=== PATIENT | male | born 1980 | race Caucasian/White ===

== ENCOUNTER 2016-07-12 16:48 | Emergency (ER) | payer OTHER ==
[2016-07-12 17:22] VITALS: BP 132/61; PULSE 80; RESP 18; TEMP 97.9
[2016-07-12] MEDS ORDERED: DIPH,PERTUS(ACELL)TETVAC-LF 0.5 ML VIAL IM ONE (17:41)
--- NOTE | 2016-07-12 17:44 | ED ---
Skin/Abscess/FB HPI - General Chief complaint: Skin/Abscess/Foreign Body Stated complaint: Finger Laceration Time Seen by Provider: 07/12/16 17:25 Source: patient, RN notes reviewed Mode of arrival: ambulatory Limitations: no limitations - History of Present Illness Initial comments: 36-year-old male presents emergency 5 chief complaint of an injury to the right hand from a table saw. Patient states she just brushed the side of his finger. Patient states increased bleeding through thought that he should be seen. Patient states he does not recall his last tetanus. Patient denies any other injury from the incident. Patient states he has full mobility and sensation of the fingers.Patient denies any recent fever, chills, shortness of breath, chest pain, back pain, abdominal pain, nausea vomiting, numbness or tingling, dysuria or hematuria, constipation or diarrhea, headaches or visual changes, or any other current symptoms. - Related Data Home Medications Medication Instructions Recorded Confirmed Atenolol 25 mg PO DAILY 08/29/15 07/12/16 Lisinopril [Prinivil] 5 mg PO DAILY 08/29/15 07/12/16 Previous Rx's Medication Instructions Recorded Ibuprofen [Motrin] 600 mg PO Q6HR PRN #30 tab 10/20/15 Allergies Allergy/AdvReac Type Severity Reaction Status Date / Time No Known Allergies Allergy Verified 07/12/16 17:23 Review of Systems ROS Statement: Those systems with pertinent positive or pertinent negative responses have been documented in the HPI. ROS Other: All systems not noted in ROS Statement are negative. Past Medical History Past Medical History: Hypertension Additional Past Medical History / Comment(s): "leaky heart valve" History of Any Multi-Drug Resistant Organisms: None Reported Past Surgical History: Coronary Bypass/CABG Additional Past Surgical History / Comment(s): aortic aneurysm repair Past Psychological History: No Psychological Hx Reported Smoking Status: Current every day smoker Past Alcohol Use History: Rare Past Drug Use History: Marijuana General Exam - General Exam Comments Initial Comments: General: The patient is awake and alert, in no distress, and does not appear acutely ill. Neck: The neck is supple, there is no tenderness. Cardiovascular: There is a regular rate and rhythm. No murmur, rub or gallop is appreciated. Respiratory: Lungs are clear to auscultation, respirations are non-labored, breath sounds are equal. No wheezes, stridor, rales, or rhonchi. Musculoskeletal: Sensation intact with 2+ pulses. In right upper extremity Full range of motion of the right wrist and right hand. Patient does appear to have an abrasion to the right middle finger as well as to the ring finger. Some bleeding noted. Less than 2 capillary refill. Neurological: CN II-XII intact, There are no obvious motor or sensory deficits. Coordination appears grossly intact. Speech is normal. Skin: Skin is warm and dry and no rashes or lesions are noted. Psychiatric: Normal mood and affect. Limitations: no limitations Course Vital Signs 07/12/16 17:21 Temperature 97.9 F Pulse Rate 80 Respiratory 18 Rate Blood Pressure 132/61 O2 Sat by Pulse 97 Oximetry Medical Decision Making - Medical Decision Making 36-year-old male presents emergency department chief complaint of right finger abrasion. At this time we did update the patient's tetanus. Does appear to be abrasion. We discussed Follow-Up. We Discussed Return Parameters. We Discussed All the Patient's Family's Questions. He Stated They Understood. Patient Will Be Discharged Home. Disposition Clinical Impression: Finger abrasion Disposition: HOME SELF-CARE Condition: Stable Instructions: Abrasion (ED) Additional Instructions: Please use medication as discussed. Please follow up with family doctor if symptoms have not improved over the next two days. Please return to the emergency room if your symptoms increase or worsen or for any other concerns. Referrals: Jordan Garcia MD [Primary Care Provider] - 1-2 days Time of Disposition: 17:44
== END 2016-07-12 18:01 | disposition home or self-care (01) ==
LOC: EC 16:48
DX: S60.412A Abrasion of right middle finger, initial encounter (principal); W31.89XA Contact with other specified machinery, initial encounter; I10 Essential (primary) hypertension; Z95.1 Presence of aortocoronary bypass graft; F17.200 Nicotine dependence, unspecified, uncomplicated; Z79.899 Other long term (current) drug therapy
CPT/HCPCS: 90471; 90715; 99282

== ENCOUNTER 2017-01-20 13:53 | Emergency (ER) | payer OTHER ==
[2017-01-20 13:58] VITALS: RESP 16
[2017-01-20] MEDS ORDERED: ONDANSETRON 4 MG/2 ML VIAL IVP STA (14:10)
[2017-01-20] MEDS ORDERED: SODIUM CHLORIDE 0.9% 1,000 ML IV STA (14:10)
[2017-01-20] MEDS ORDERED: HYDROmorphone 1 MG/ML 1 ML SYRINGE IVP STA (14:10)
--- NOTE | 2017-01-20 14:19 | ED ---
Abdominal Pain HPI - General Chief Complaint: Abdominal Pain Stated Complaint: severe abdominal pain Time Seen by Provider: 01/20/17 14:00 Source: patient, RN notes reviewed Mode of arrival: wheelchair Limitations: no limitations - History of Present Illness Initial Comments: This a 36-year-old male presents emergency Department with chief complaint of right lower quadrant abdominal pain. Patient states that he had some symptoms on Sunday resolve but returned worse this morning. Patient states it's nonradiating right lower quadrant abdominal pain. He does have a history kidney stones and states this feels different. He denies any dysuria, hematuria , diarrhea or constipation. She's had nausea and vomiting at home and off states she's had subjective fever and chills. Patient states she had no prior abdominal surgeries denies any history of bowel infections. Patient states she' s never had a colonoscopy. Patient has NO KNOWN DRUG ALLERGIES. - Related Data Home Medications Medication Instructions Recorded Confirmed Atenolol 25 mg PO DAILY 08/29/15 01/20/17 Lisinopril [Prinivil] 5 mg PO DAILY 08/29/15 01/20/17 Previous Rx's Medication Instructions Recorded Hydrocodone/Acetaminophen [Beebe 1 tab PO Q6HR PRN #20 tab 01/20/17 5-325] Ondansetron Odt [Zofran Odt] 4 mg PO Q8HR PRN #10 tab 01/20/17 Tamsulosin [Flomax] 0.4 mg PO DAILY #7 cap 01/20/17 Allergies Allergy/AdvReac Type Severity Reaction Status Date / Time No Known Allergies Allergy Verified 01/20/17 14:18 Review of Systems ROS Statement: Those systems with pertinent positive or pertinent negative responses have been documented in the HPI. ROS Other: All systems not noted in ROS Statement are negative. Past Medical History Past Medical History: Hypertension Additional Past Medical History / Comment(s): "leaky heart valve" History of Any Multi-Drug Resistant Organisms: None Reported Past Surgical History: Coronary Bypass/CABG Additional Past Surgical History / Comment(s): aortic aneurysm repair Past Psychological History: No Psychological Hx Reported Smoking Status: Former smoker Past Alcohol Use History: Rare Past Drug Use History: Marijuana General Exam Limitations: no limitations General appearance: alert, in no apparent distress Respiratory exam: Present: normal lung sounds bilaterally. Absent: respiratory distress, wheezes, rales, rhonchi, stridor Cardiovascular Exam: Present: normal rhythm, tachycardia, normal heart sounds. Absent: systolic murmur, diastolic murmur, rubs, gallop, clicks GI/Abdominal exam: Present: soft, tenderness (Moderate right lower quadrant tenderness), normal bowel sounds, other (Positive psoas sign). Absent: distended, guarding, rebound, rigid Back exam: Absent: CVA tenderness (R), CVA tenderness (L) Skin exam: Present: warm, dry, intact, normal color. Absent: rash Course Vital Signs 01/20/17 13:56 Temperature 97.8 F Pulse Rate 111 H Respiratory 16 Rate Blood Pressure 144/75 O2 Sat by Pulse 100 Oximetry Medical Decision Making - Medical Decision Making 36-year-old male presented for right flank pain. Patient has a 5 mm obstructing stone with no change since time. Patient is afebrile. Patient did have mild left acidosis was related to his dehydration nausea vomiting. Patient is hydrated and patient states he feels much improved at this time. Patient will follow-up with on-call urology Dr. Rust patient be discharged with Kiki Schroeder Zofran. - Lab Data Result diagrams: 01/20/17 14:21 01/20/17 14:21 Lab Results 01/20/17 01/20/17 01/20/17 Range/Units 14:21 14:21 14:21 WBC 8.1 (3.8-10.6) k/uL RBC 5.31 (4.30-5.90) m/uL Hgb 16.2 (13.0-17.5) gm/dL Hct 47.9 (39.0-53.0) % MCV 90.2 (80.0-100.0) fL MCH 30.6 (25.0-35.0) pg MCHC 33.9 (31.0-37.0) g/dL RDW 13.8 (11.5-15.5) % Plt Count 192 (150-450) k/uL Neutrophils % 80 % Lymphocytes % 14 % Monocytes % 4 % Eosinophils % 1 % Basophils % 0 % Neutrophils # 6.4 (1.3-7.7) k/uL Lymphocytes # 1.2 (1.0-4.8) k/uL Monocytes # 0.3 (0-1.0) k/uL Eosinophils # 0.1 (0-0.7) k/uL Basophils # 0.0 (0-0.2) k/uL PT (9.0-12.0) sec INR (<1.2) APTT (22.0-30.0) sec Sodium 140 (137-145) mmol/L Potassium 4.0 (3.5-5.1) mmol/L Chloride 108 H (98-107) mmol/L Carbon Dioxide 18 L (22-30) mmol/L Anion Gap 14 mmol/L BUN 18 (9-20) mg/dL Creatinine 0.80 (0.66-1.25) mg/dL Est GFR (MDRD) Af Amer >60 (>60 ml/min/1.73 sqM) Est GFR (MDRD) Non-Af >60 (>60 ml/min/1.73 sqM) Glucose 121 H (74-99) mg/dL Plasma Lactic Acid Bronson 2.8 H* (0.7-2.0) mmol/L Calcium 10.1 (8.4-10.2) mg/dL Total Bilirubin 1.0 (0.2-1.3) mg/dL AST 23 (17-59) U/L ALT 25 (21-72) U/L Alkaline Phosphatase 100 (38-126) U/L Total Protein 7.5 (6.3-8.2) g/dL Albumin 4.7 (3.5-5.0) g/dL Amylase 65 (30-110) U/L Lipase 113 (23-300) U/L Urine Color Urine Appearance (Clear) Urine pH (5.0-8.0) Ur Specific [place] (1.001-1.035) Urine Protein (Negative) Urine Glucose (UA) (Negative) Urine Ketones (Negative) Urine Blood (Negative) Urine Nitrite (Negative) Urine Bilirubin (Negative) Urine Urobilinogen (<2.0) mg/dL Ur Leukocyte Esterase (Negative) Urine RBC (0-5) /hpf Ur Squamous Epith Cells (0-4) /hpf Urine Mucus (None) /hpf 01/20/17 01/20/17 Range/Units 14:21 14:21 WBC (3.8-10.6) k/uL RBC (4.30-5.90) m/uL Hgb (13.0-17.5) gm/dL Hct (39.0-53.0) % MCV (80.0-100.0) fL MCH (25.0-35.0) pg MCHC (31.0-37.0) g/dL RDW (11.5-15.5) % Plt Count (150-450) k/uL Neutrophils % % Lymphocytes % % Monocytes % % Eosinophils % % Basophils % % Neutrophils # (1.3-7.7) k/uL Lymphocytes # (1.0-4.8) k/uL Monocytes # (0-1.0) k/uL Eosinophils # (0-0.7) k/uL Basophils # (0-0.2) k/uL PT 10.8 (9.0-12.0) sec INR 1.1 (<1.2) APTT 21.9 L (22.0-30.0) sec Sodium (137-145) mmol/L Potassium (3.5-5.1) mmol/L Chloride (98-107) mmol/L Carbon Dioxide (22-30) mmol/L Anion Gap mmol/L BUN (9-20) mg/dL Creatinine (0.66-1.25) mg/dL Est GFR (MDRD) Af Amer (>60 ml/min/1.73 sqM) Est GFR (MDRD) Non-Af (>60 ml/min/1.73 sqM) Glucose (74-99) mg/dL Plasma Lactic Acid [place] (0.7-2.0) mmol/L Calcium (8.4-10.2) mg/dL Total Bilirubin (0.2-1.3) mg/dL AST (17-59) U/L ALT (21-72) U/L Alkaline Phosphatase (38-126) U/L Total Protein (6.3-8.2) g/dL Albumin (3.5-5.0) g/dL Amylase (30-110) U/L Lipase (23-300) U/L Urine Color Yellow Urine Appearance Clear (Clear) Urine pH 6.5 (5.0-8.0) Ur Specific [place] 1.018 (1.001-1.035) Urine Protein Trace H (Negative) Urine Glucose (UA) Negative (Negative) Urine Ketones 1+ H (Negative) Urine Blood Large H (Negative) Urine Nitrite Negative (Negative) Urine Bilirubin Negative (Negative) Urine Urobilinogen <2.0 (<2.0) mg/dL Ur Leukocyte Esterase Negative (Negative) Urine RBC >182 H (0-5) /hpf Ur Squamous Epith Cells <1 (0-4) /hpf Urine Mucus Moderate H (None) /hpf Disposition Clinical Impression: Ureteral calculi, Right flank pain, Nausea & vomiting Disposition: HOME SELF-CARE Condition: Stable Instructions: Kidney Stones (ED) Additional Instructions: Please return to the Emergency Department if symptoms worsen or any other concerns. Prescriptions: Hydrocodone/Acetaminophen [Beebe 5-325] 1 tab PO Q6HR PRN #20 tab PRN Reason: Pain Ondansetron Odt [Zofran Odt] 4 mg PO Q8HR PRN #10 tab PRN Reason: Nausea Tamsulosin [Flomax] 0.4 mg PO DAILY #7 cap Referrals: Jordan Garcia MD [Primary Care Provider] - 1-2 days Neftali Rust MD [STAFF PHYSICIAN] - 1-2 days
[2017-01-20 14:42] LABS: Appearance,Urine Clear (Clear); Basophils % (A) 0 %; Bilirubin,Urine Negative (Negative); CH 31.2; CHCM 34.7; Eosinophils # (A) 0.1 k/uL (0-0.7); Eosinophils % (A) 1 %; Glucose,Urine (UA) Negative (Negative); HCT 47.9 % (39.0-53.0); HDW 2.18; HGB 16.2 gm/dL (13.0-17.5); Ketones,Urine 1+ (Negative); Leukocyte Esterase,Urine Negative (Negative); Luc # (Auto) 0.09; Luc % (Auto) 1; Lymphocytes # (A) 1.2 k/uL (1.0-4.8); Lymphocytes % (A) 14 %; MCH 30.6 pg (25.0-35.0); MCHC 33.9 g/dL (31.0-37.0); MCV 90.2 fL (80.0-100.0); Mean Platelet Volume 8.6; Monocytes # (A) 0.3 k/uL (0-1.0); Monocytes % (A) 4 %; Mucus,Urine Moderate /hpf; Neutrophils # (A) 6.4 k/uL (1.3-7.7); Neutrophils % (A) 80 %; Nitrite,Urine Negative (Negative); PH, Urine 6.5 (5.0-8.0); Particle Count 4631; Protein,Urine Trace (Negative); RBC 5.31 m/uL (4.30-5.90); RBC,Urine >182 /hpf (0-5); RDW 13.8 % (11.5-15.5); Specific Gravity,Urine 1.018 (1.001-1.035); Squamous Epithelial Cell,Urine <1 /hpf (0-4); UA Billing (MACRO vs. MICRO) MICRO; Urobilinogen,Urine <2.0 mg/dL (<2.0); WBC 8.1 k/uL (3.8-10.6); WBC (Perox) 7.45
[2017-01-20 14:55] LABS: INR 1.1 (<1.2); Partial Thromboplastin Time 21.9 sec (22.0-30.0); Prothrombin Time 10.8 sec (9.0-12.0)
[2017-01-20 15:05] LABS: ALT 25 U/L (21-72); AST 23 U/L (17-59); Alkaline Phosphatase 100 U/L (38-126); Amylase 65 U/L (30-110); Anion Gap 14 mmol/L; Blood Urea Nitrogen 18 mg/dL (9-20); Calcium 10.1 mg/dL (8.4-10.2); Carbon Dioxide 18 mmol/L (22-30); Chloride 108 mmol/L (98-107); Glucose 121 mg/dL (74-99); Non-African American GFR(MDRD) >60 (>60 ml/min/1.73 sqM); Sodium 140 mmol/L (137-145); Total Protein 7.5 g/dL (6.3-8.2)
[2017-01-20] MEDS ORDERED: SODIUM CHLORIDE 0.9% 500 ML IV ONE (15:09)
--- NOTE | 2017-01-20 15:13 | CT ---
EXAMINATION TYPE: CT abdomen pelvis wo con DATE OF EXAM: 01/20/2017 COMPARISON: NONE HISTORY: RLQ pain, microscopic hematuria CT DLP: 220.9 mGycm Automated exposure control for dose reduction was used. TECHNIQUE: Helical acquisition of images was performed from the lung bases through the pelvis. FINDINGS: The lung bases are clear. There is no pleural effusion. Heart size is normal. Liver spleen pancreas and bladder appear normal. Bile ducts are not dilated. There is no adrenal mass . Kidneys have normal contour. There is right-sided hydronephrosis and hydroureter. There is a 5 mm abisai culus in the proximal right ureter. There is no retroperitoneal adenopathy. There is no ascites. I see no intestinal wall thickening. The re are no dilated loops. Bladder distends smoothly. There are phleboliths in the pelvis. Appendix robinson ears normal. There is narrowing at L5-S1 disc space with vacuum disc and spur formation. IMPRESSION: 5 MM OBSTRUCTING CALCULUS IN THE PROXIMAL RIGHT URETER WITH HYDRONEPHROSIS.
[2017-01-20 15:26] VITALS: BP 142/62; PULSE 76; TEMP 98.9
== END 2017-01-20 15:51 | disposition home or self-care (01) ==
LOC: EC 13:53
DX: N20.1 Calculus of ureter (principal); R11.2 Nausea with vomiting, unspecified; E87.2 Acidosis; E86.0 Dehydration; I10 Essential (primary) hypertension; Z87.891 Personal history of nicotine dependence; Z79.899 Other long term (current) drug therapy
CPT/HCPCS: 36415; 80053; 82150; 83605; 83690; 85025; 85610; 85730; 81001; 74176; 99284; 96374; 96375; 96361; J2405; J1170